=== PATIENT | female | born 1965 | race Caucasian/White ===

== ENCOUNTER 2021-04-05 09:24 | Emergency (ER) | payer MEDICAID ==
[~2021-04-05] VITALS: Ht 154.9 cm; Wt 68.0 kg
[2021-04-05 10:25] LABS: HEMATOCRIT 36.8 % (37.0-47.0); HEMOGLOBIN 12.1 gm/dL (12.0-15.0); MCH 27.3 pg (26.0-34.0); MCV 82.8 fL (80.0-100.0); MPV 8.2 fl. (7.2-11.1); NUCLEATED RBCS 0 /100WBC; PLATELET COUNT* 217 thou/uL (150-400); RBC 4.44 mil/uL (4.20-5.00); RDW-CV 14.9 % (10.5-14.5); WBC 6.7 thou/uL (4.0-11.0)
[2021-04-05 10:27] LABS: CALCIUM 8.6 mg/dL (8.5-10.1); CREATININE 0.8 mg/dL (0.6-1.3); POTASSIUM 3.6 mmol/L (3.5-5.1)
[2021-04-05 10:31] LABS: ALBUMIN 3.5 g/dL (3.4-5.0); TOTAL BILIRUBIN 0.5 mg/dL (<0.1-1.0); TOTAL PROTEIN 6.9 g/dL (6.4-8.2)
[2021-04-05 10:52] LABS: ABSOLUTE LYMPHOCYTES 0.3 thou/uL (0.8-5.3); ABSOLUTE NEUTROPHILS 6.4 thou/uL (1.6-8.1); PLATELET ESTIMATE ADEQUATE
--- NOTE | 2021-04-05 11:05 | EKG ---
[place] [address] ELECTROCARDIOGRAM REPORT Name: JOHN CORONADO Room: [facility]#: [id number] Admission: 04/05/21 Attend Phys: Discharge: Date of : 65 Date of Service: 04/05/21 1019 Report #: [id number] THIS REPORT FOR: //name// [facility] ED Test Date: 2021-04-05 Test Time: 10:19:04 Pat Name: JOHN CORONADO Department: Room: Gender: [employer] Operator: TDS : 1965 Requested By: Eric Lawrence Order Number: [id number] MD: Nehemias Goodwin Measurements Intervals [place] Rate: 85 P: 78 ND: 138 QRS: 72 QRSD: 87 T: 68 QT: 341 QTc: 406 Interpretive Statements Sinus rhythm LAE, consider biatrial enlargement No previous ECG available for comparison Electronically Signed On 04-05-2021 11:05:39 [employer]TE[employer]ATION [employer]IST by Nehemias Goodwin [email or web address] <ELECTRONICALLY SIGNED> By: Nehemias Goodwin MD, [facility] 04/05/21 1105 1019 1019 Nehemias Goodwin MD, FACC /EPI
[2021-04-05 11:32] LABS: URINE BILIRUBIN NEGATIVE (Negative); URINE BLOOD 1+ (Negative); URINE CLARITY CLEAR; URINE COLOR YELLOW; URINE GLUCOSE-RANDOM NEGATIVE (Negative); URINE KETONES NEGATIVE (Negative); URINE LEUKOCYTES-REFLEX NEGATIVE (Negative); URINE NITRITE-REFLEX NEGATIVE (Negative); URINE PROTEIN NEGATIVE (Negative); URINE SPECIFIC GRAVITY 1.015 (1.005-1.030); URINE UROBILINOGEN 0.2 E.U./dl (0.2-1.0)
[2021-04-05 11:38] LABS: SQUAMOUS 0-3 Few /LPF (0-3)
[2021-04-05 11:39] LABS: BACTERIA-REFLEX >30 Many /HPF (None Seen); CASTS None Seen /LPF (None Seen); CRYSTALS None Seen /LPF (None Seen); MUCUS 0-3 Light strn/LPF (None Seen); URINE RBC 0-2 Rare /HPF (0-2); URINE WBC-REFLEX None Seen /HPF (0-5)
[2021-04-05] MEDS ORDERED: HYDROCODON-ACE1 EAC7 PO (12:36)
[2021-04-05] MEDS ORDERED: FLEXERIL PO (12:36)
[2021-04-05] MEDS ORDERED: ZOFRAN ODT4 MG DISSOLVE (12:44)
[2021-04-05 12:56] VITALS: BP 105/51
== END 2021-04-05 12:58 | disposition home or self-care (01) ==
LOC: M.ERS 09:24
PROVIDERS: Emergency Medicine Emergency Medical Services
DX: N39.0 Urinary tract infection, site not specified (principal); M54.59 Other low back pain; M19.90 Unspecified osteoarthritis, unspecified site; K21.9 Gastro-esophageal reflux disease without esophagitis; Z88.5 Allergy status to narcotic agent; Z88.8 Allergy status to other drugs, medicaments and biological substances